=== PATIENT | female | born 1995 | race Caucasian/White ===

== ENCOUNTER 2021-12-09 18:46 | Emergency (ER) | payer OTHER ==
[~2021-12-09] VITALS: Ht 149.9 cm; Wt 59.1 kg
[2021-12-09 18:48] VITALS: BP 128/77
== END 2021-12-09 21:00 | disposition home or self-care (01) ==
LOC: EMS 18:50
DX: Z48.00 Encounter for change or removal of nonsurgical wound dressing (principal); F17.210 Nicotine dependence, cigarettes, uncomplicated
CPT/HCPCS: 99281; Z7502